=== PATIENT | female | born 1975 | race Hispanic/Latino ===

== ENCOUNTER 2017-07-03 14:31 | Emergency (ER) | payer SELFPAY ==
--- NOTE | 2017-07-03 16:08 | RAD REPORT ---
EXAM DESCRIPTION: RAD - Foot Right 3 View - 07/03/2017 3:33 pm CLINICAL HISTORY: History of clubfoot, persistent right foot pain COMPARISON: None. FINDINGS: No fracture, dislocation or periosteal reaction. No measurable degenerative changes at the MTP or IP joints. Small plantar spur is present. There are prominent calcifications of the Achilles tendon. Degenerative changes are present at the calcaneus cuboid joint and the talonavicular joint. P atient has a relatively low profile or flatten the dome of the talus. These are all probably chronic sequela of the clubfoot deformity. No destructive bone process. No air or foreign body in the soft tissues. IMPRESSION: Degenerative changes in the midfoot with changes of the talar dome all likely sequela of the clubfoot deformity stated in patient history. No acute or destructive bone process. Small plantar spur.
--- NOTE | 2017-07-03 16:10 | EDPHYS ---
Physician Documentation [facility] Name: Isabelle Ansari Age: 41 yrs Sex: Female : 1975 Arrival Date: 07/03/2017 Time: 14:34 Bed 19 Private MD: ED Physician Dave An HPI: 07/03 15:42 This 41 yrs old Female presents to ER via Wheelchair with complaints of Foot kb Pain. 15:42 The patient presents with an injury, pain, that is acute, swelling, tenderness. The kb complaints affect the right foot. Context: The problem was sustained at home, resulted from a mis-step by the patient, the patient can fully bear weight, the patient is able to ambulate. Onset: The symptoms/episode began/occurred this morning. Modifying factors: The symptoms are alleviated by nothing, the symptoms are aggravated by weight bearing. Associated signs and symptoms: Pertinent positives: swelling, Pertinent negatives: calf tenderness, fever, nausea, numbness, rash, tingling, vomiting, warmth, weakness. Severity of symptoms: At their worst the symptoms were moderate, in the emergency department the symptoms are unchanged. The patient has not experienced similar symptoms in the past. The patient has not recently seen a physician. 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 - Social history:: Smoking status: Patient/guardian denies using tobacco. ROS: 15:42 Constitutional: Negative for fever, chills, and weight loss, Cardiovascular: Negative kb for chest pain, palpitations, and edema, Respiratory: Negative for shortness of breath, cough, wheezing, and pleuritic chest pain, Abdomen/GI: Negative for abdominal pain, nausea, vomiting, diarrhea, and constipation, Skin: Negative for injury, rash, and discoloration, Neuro: Negative for headache, weakness, numbness, tingling, and seizure. 15:42 MS/extremity: Positive for injury or acute deformity, pain, swelling, tenderness, of the dorsum of right foot. Exam: 15:42 Constitutional: This is a well developed, well nourished patient who is awake, alert, kb and in no acute distress. Head/Face: Normocephalic, atraumatic. Chest/axilla: Normal chest wall appearance and motion. Nontender with no deformity. No lesions are appreciated. Cardiovascular: Regular rate and rhythm with a normal S1 and S2. No gallops, murmurs, or rubs. Normal PMI, no JVD. No pulse deficits. Respiratory: Lungs have equal breath sounds bilaterally, clear to auscultation and percussion. No rales, rhonchi or wheezes noted. No increased work of breathing, no retractions or nasal flaring. Abdomen/GI: Soft, non-tender, with normal bowel sounds. No distension or tympany. No guarding or rebound. No evidence of tenderness throughout. Skin: Warm, dry with normal turgor. Normal color with no rashes, no lesions, and no evidence of cellulitis. Neuro: Awake and alert, GCS 15, oriented to person, place, time, and situation. Cranial nerves II-XII grossly intact. Motor strength 5/5 in all extremities. Sensory grossly intact. Cerebellar exam normal. Normal gait. 15:42 Musculoskeletal/extremity: Extremities: grossly normal except: noted in the dorsum of right foot: pain, swelling, tenderness, ROM: intact in all extremities, Circulation is intact in all extremities. Sensation intact. Weight bearing: able to fully bear weight. Vital Signs: 14:49 BP 152 / 70; Pulse 113; Resp 17; Temp 98.2; Pulse Ox 100% on R/A; Weight 72.57 kg; aj Height 5 ft. 0 in. (152.40 cm); Pain 7/10; 15:50 BP 148 / 76; Pulse 87; Resp 16; Pulse Ox 99% on R/A; Pain 5/10; em 14:49 Body Mass Index 31.25 (72.57 kg, 152.40 cm) aj MDM: 15:26 Patient medically screened. kb 15:42 Data reviewed: vital signs, nurses notes. Data interpreted: Pulse oximetry: on room air kb is 100 %. Interpretation: normal. 16:09 Counseling: I had a detailed discussion with the patient and/or guardian regarding: the kb historical points, exam findings, and any diagnostic results supporting the discharge/admit diagnosis, radiology results, the need for outpatient follow up, a family practitioner, to return to the emergency department if symptoms worsen or persist or if there are any questions or concerns that arise at home. 07/03 14:50 Order name: Foot Right 3 View XRAY; Complete Time: 16:09 aj 07/03 16:09 Order name: Christ Wrap; Complete Time: 16:35 kb Administered Medications: No medications were administered Disposition: 07/03/17 16:09 Discharged to Home. Impression: Sprain of foot. - Condition is Stable. - Discharge Instructions: Foot Sprain. - Medication Reconciliation Form, Thank You Letter, Antibiotic Education, Prescription Opioid Use, Work release form form. - Follow up: Emergency Department; When: As needed; Reason: Worsening of condition. Follow up: Private Physician; When: 2 - 3 days; Reason: Recheck today's complaints, Continuance of care, Re-evaluation by your physician. Addendum: 07/05/2017 06:21 Co-signature as Attending Physician, Dave An MD. g s Signatures: Dispatcher [employer] Megan La, SOFTWARE DEVELOPMENT PROJECT MANAGER-C SOFTWARE DEVELOPMENT PROJECT MANAGER-Michelle Verde, RN RN Gerson Gusman, SOUVENIR AND NOVELTY MAKER SOUVENIR AND NOVELTY MAKER Dave Ulrich MD MD
--- NOTE | 2017-07-03 16:10 | ER ---
Nurse's Notes [facility] Name: Isabelle Ansari Age: 41 yrs Sex: Female : 1975 Arrival Date: 07/03/2017 Time: 14:34 Bed 19 Private MD: Diagnosis: Sprain of foot Presentation: 07/03 14:47 Presenting complaint: Patient states: Reports pain to right foot that started this AM aj after falling. Pain is worse with weight baring. Transition of care: patient was not received from another setting of care. Onset of symptoms was July 03, 2017. Note Patient drove herself to ER. Care prior to arrival: None. 14:47 Method Of Arrival: Wheelchair aj 14:47 Acuity: KIKI 4 aj Triage Assessment: 14:49 General: Appears in no apparent distress. comfortable, Behavior is calm, cooperative, aj appropriate for age. Pain: Complains of pain in arch of right foot and dorsum of right foot Pain at worst was 8 out of 10 on a pain scale. Neuro: Level of Consciousness is awake, alert, obeys commands, Oriented to person, place, time, situation. Respiratory: Airway is patent Respiratory effort is even, unlabored, Respiratory pattern is regular, symmetrical. Derm: Skin is intact, is healthy with good turgor, Skin is pink, warm \T\ dry. normal. 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 - Social history:: Smoking status: Patient/guardian denies using tobacco. Screenin:45 Abuse screen: Denies threats or abuse. Nutritional screening: No deficits noted. em Tuberculosis screening: No symptoms or risk factors identified. Fall Risk None identified. Assessment: 15:45 General: Appears in no apparent distress. uncomfortable, Behavior is calm, cooperative. em Pain: Complains of pain in right foot. Neuro: Level of Consciousness is awake, alert, obeys commands, Oriented to person, place, time, situation. Cardiovascular: Capillary refill < 3 seconds Patient's skin is warm and dry. Respiratory: Airway is patent Respiratory effort is even, unlabored. GI: Abdomen is round. : No signs and/or symptoms were reported regarding the genitourinary system. EENT: No signs and/or symptoms were reported regarding the EENT system. Derm: Skin is intact, Skin is pink, warm \T\ dry. Musculoskeletal: Swelling present in right foot. 15:45 Injury Description: trip injury, has limited ROM in right foot, 2-4 digits. em 16:00 General: The previous assessment is accurate, call light remains within reach. . ss 16:20 Reassessment: Patient appears in no apparent distress at this time. Patient and/or em family updated on plan of care and expected duration. Pain level reassessed. Patient is alert, oriented x 3, equal unlabored respirations, skin warm/dry/pink. Vital Signs: 14:49 BP 152 / 70; Pulse 113; Resp 17; Temp 98.2; Pulse Ox 100% on R/A; Weight 72.57 kg; aj Height 5 ft. 0 in. (152.40 cm); Pain 7/10; 15:50 BP 148 / 76; Pulse 87; Resp 16; Pulse Ox 99% on R/A; Pain 5/10; em 14:49 Body Mass Index 31.25 (72.57 kg, 152.40 cm) aj ED Course: 14:34 Patient arrived in ED. as 14:48 Triage completed. aj 14:49 Arm band placed on left wrist. Patient placed in waiting room, Patient notified of wait aj time. 15:26 [facility] Hopper [facility]C [facility] kb 15:26 Dave An MD is Attending Physician. kb 15:30 Gerson Oleary LVN is Primary Nurse. em 15:32 X-ray completed. Patient tolerated procedure well. Patient taken to [facility], via mh1 wheelchair. 15:33 Foot Right 3 View XRAY In Process Unspecified. EDMS 15:45 Patient has correct armband on for positive identification. Bed in low position. Side em rails up X2. Ice pack to injury. 15:45 No provider procedures requiring assistance completed. Patient did not have IV access em during this emergency room visit. 16:24 Christ wrap to right foot. em Administered Medications: No medications were administered Outcome: 16:09 Discharge ordered by . kb 16:36 Discharged to home via wheelchair. em 16:36 Condition: good 16:36 Discharge instructions given to patient, Instructed on discharge instructions, follow up and referral plans. Demonstrated understanding of instructions, follow-up care. 16:37 Patient left the ED. em Signatures: Dispatcher [employer] Megan La, FRANCISCO-C DIRECT MARKETING ANALYST-Michelle Verde, RN RN Mikayla Kay [facility] Gerson Oleary, KITCHEN WORKER KITCHEN WORKER Luisa Finn Shelby, RN RN ss
== END 2017-07-03 16:37 | disposition home or self-care (01) ==
LOC: ER 14:31
DX: S93.601A Unspecified sprain of right foot, initial encounter (principal); X58.XXXA Exposure to other specified factors, initial encounter; Y93.9 Activity, unspecified; Y92.009 Unspecified place in unspecified non-institutional (private) residence as the place of occurrence of the external cause
CPT/HCPCS: 99283

== ENCOUNTER 2018-11-17 14:26 | Emergency (ER) | payer SELFPAY ==
--- OUTSIDE RECORDS SUMMARY | 2018-11-17 14:29 | XMS REPORT ---
:1975 [facility] [address] [place] [id number] Care Team Providers Name Role Phone Unavailable Unavailable Unavailable Problems This patient has no known problems. Allergies, Adverse Reactions, Alerts This patient has no known allergies or adverse reactions. Medications This patient has no known medications.
[2018-11-17] MEDS ORDERED: TETANUS & DIPHTHERIA TOX,ADULT 0.5 ML VIAL ONE (15:09)
[2018-11-17] MEDS ORDERED: CEPHALEXIN 250 MG CAP ONE (15:09)
--- NOTE | 2018-11-17 15:13 | ER ---
Nurse's Notes [facility] Name: Isabelle Ansari Age: 43 yrs Sex: Female : 1975 Arrival Date: 11/17/2018 Time: 14:28 Bed 12 Private MD: Diagnosis: Laceration without foreign body of right hand Presentation: 11/17 14:30 Presenting complaint: Patient states: I cut my right hand on sheet metal and I am la1 diabetic so I dont want it to get infected. Transition of care: patient was not received from another setting of care. Complicating Factors: There are no complicating factors for this patient. Onset of symptoms was November 17, 2018. Risk Assessment: Do you want to hurt yourself or someone else? Patient reports no desire to harm self or others. Initial Sepsis Screen: Does the patient meet any 2 criteria? No. Patient's initial sepsis screen is negative. Does the patient have a suspected source of infection? No. Patient's initial sepsis screen is negative. Care prior to arrival: None. 14:30 Method Of Arrival: Ambulatory la1 14:30 Acuity: KIKI 4 la1 Historical: - Allergies: 14:32 No Known Allergies; la1 - PMHx: 14:32 Diabetes - NIDDM; la1 - Immunization history:: Adult Immunizations up to date. - Social history:: Smoking status: Patient uses tobacco products, smokes one-half pack cigarettes per day. - Ebola Screening: : No symptoms or risks identified at this time. - Family history:: not pertinent. Screenin:34 Abuse screen: Denies threats or abuse. Nutritional screening: No deficits noted. la1 Tuberculosis screening: No symptoms or risk factors identified. Fall Risk None identified. Assessment: 14:33 General: Appears in no apparent distress. Behavior is calm, cooperative. Pain: la1 Complains of pain in right hand. Neuro: Level of Consciousness is awake, alert, obeys commands, Oriented to person, place, time, situation. Cardiovascular: Capillary refill < 3 seconds Patient's skin is warm and dry. Respiratory: Airway is patent Respiratory effort is even, unlabored, Respiratory pattern is regular, symmetrical. GI: No signs and/or symptoms were reported involving the gastrointestinal system. : No signs and/or symptoms were reported regarding the genitourinary system. Musculoskeletal: Circulation, motion, and sensation intact. Capillary refill < 3 seconds, is brisk, in bilateral fingers. Injury Description: Laceration sustained to medial aspect of right hand is clean. 15:17 Reassessment: wound cleaned with Hibiclens and water. Vital Signs: 14:32 BP 150 / 84; Pulse 84; Resp 16; Temp 97.5; Pulse Ox 98% on R/A; Weight 68.04 kg; la1 ED Course: 14:28 Patient arrived in ED. as 14:32 Triage completed. la1 14:32 Arm band placed on left wrist. la1 14:33 Lito Hassan, RN is Primary Nurse. la1 14:35 Seven Andrews MD is Attending Physician. [facility] 14:35 Patient has correct armband on for positive identification. la1 15:41 No provider procedures requiring assistance completed. Patient did not have IV access la1 during this emergency room visit. Administered Medications: 15:16 Drug: Tetanus-Diphtheria Toxoid Adult 0.5 ml {Roping Machine Tender: Vaprema. Exp: la1 07/16/2020. Lot #: [id number]. } Route: IM; Site: right deltoid; 15:40 Follow up: Response: No adverse reaction la1 15:16 Drug: KeFLEX 500 mg Route: PO; la1 15:40 Follow up: Response: No adverse reaction la1 15:16 Drug: Neosporin Ointment 1 application Route: Topical; Site: affected area; la1 Outcome: 15:11 Discharge ordered by . [facility] 15:41 Discharged to home ambulatory. la1 15:41 Condition: stable 15:41 Discharge instructions given to patient, Instructed on discharge instructions, follow up and referral plans. medication usage, Demonstrated understanding of instructions, follow-up care, medications, Prescriptions given X 2. 15:41 Patient left the ED. la1 Signatures: Seven Andrews MD MD cha Martinez, Amelia as Smirch, Shelby, RN RN Lito Hassan RN RN la1
--- NOTE | 2018-11-17 15:14 | EDPHYS ---
Physician Documentation [facility] Name: Isabelle Ansari Age: 43 yrs Sex: Female : 1975 Arrival Date: 11/17/2018 Time: 14:28 Bed 12 Private MD: ROSE Physician Seven Andrews HPI: 11/17 15:07 This 43 yrs old Female presents to ER via Ambulatory with complaints of miroslava Laceration To Hand. 15:07 The patient has a laceration related to: falling occurred at home. The laceration(s) miroslava is(are) located on the right hand. Onset: The symptoms/episode began/occurred this morning. Associated signs and symptoms: The patient has no apparent associated signs or symptoms. The patient has not experienced similar symptoms in the past. Historical: - Allergies: 14:32 No Known Allergies; la1 - PMHx: 14:32 Diabetes - NIDDM; la1 - Immunization history:: Adult Immunizations up to date. - Social history:: Smoking status: Patient uses tobacco products, smokes one-half pack cigarettes per day. - Ebola Screening: : No symptoms or risks identified at this time. - Family history:: not pertinent. ROS: 15:07 Constitutional: Negative for fever, chills, and weight loss, Eyes: Negative for injury, miroslava pain, redness, and discharge, ENT: Negative for injury, pain, and discharge, Neck: Negative for injury, pain, and swelling, Cardiovascular: Negative for chest pain, palpitations, and edema, Respiratory: Negative for shortness of breath, cough, wheezing, and pleuritic chest pain, Abdomen/GI: Negative for abdominal pain, nausea, vomiting, diarrhea, and constipation, Back: Negative for injury and pain, : Negative for injury, bleeding, discharge, and swelling, Skin: Negative for injury, rash, and discoloration, Neuro: Negative for headache, weakness, numbness, tingling, and seizure, Psych: Negative for depression, anxiety, suicide ideation, homicidal ideation, and hallucinations, Allergy/Immunology: Negative for hives, rash, and allergies, Endocrine: Negative for neck swelling, polydipsia, polyuria, polyphagia, and marked weight changes, Hematologic/Lymphatic: Negative for swollen nodes, abnormal bleeding, and unusual bruising. 15:07 MS/extremity: Positive for laceration, tenderness, of the outer aspect of right palm. Exam: 15:07 Constitutional: This is a well developed, well nourished patient who is awake, alert, miroslava and in no acute distress. Head/Face: Normocephalic, atraumatic. Eyes: Pupils equal round and reactive to light, extra-ocular motions intact. Lids and lashes normal. Conjunctiva and sclera are non-icteric and not injected. Cornea within normal limits. Periorbital areas with no swelling, redness, or edema. ENT: Nares patent. No nasal discharge, no septal abnormalities noted. Tympanic membranes are normal and external auditory canals are clear. Oropharynx with no redness, swelling, or masses, exudates, or evidence of obstruction, uvula midline. Mucous membranes moist. Neck: Trachea midline, no thyromegaly or masses palpated, and no cervical lymphadenopathy. Supple, full range of motion without nuchal rigidity, or vertebral point tenderness. No Meningismus. Chest/axilla: Normal chest wall appearance and motion. Nontender with no deformity. No lesions are appreciated. Cardiovascular: Regular rate and rhythm with a normal S1 and S2. No gallops, murmurs, or rubs. Normal PMI, no JVD. No pulse deficits. Respiratory: Lungs have equal breath sounds bilaterally, clear to auscultation and percussion. No rales, rhonchi or wheezes noted. No increased work of breathing, no retractions or nasal flaring. Abdomen/GI: Soft, non-tender, with normal bowel sounds. No distension or tympany. No guarding or rebound. No evidence of tenderness throughout. Back: No spinal tenderness. No costovertebral tenderness. Full range of motion. MS/ Extremity: Pulses equal, no cyanosis. Neurovascular intact. Full, normal range of motion. Neuro: Awake and alert, GCS 15, oriented to person, place, time, and situation. Cranial nerves II-XII grossly intact. Motor strength 5/5 in all extremities. Sensory grossly intact. Cerebellar exam normal. Normal gait. Psych: Awake, alert, with orientation to person, place and time. Behavior, mood, and affect are within normal limits. 15:07 Skin: injury, laceration(s), the wound is approximately 1 cm(s), with a depth of .25 cm(s), of the right hand. Vital Signs: 14:32 BP 150 / 84; Pulse 84; Resp 16; Temp 97.5; Pulse Ox 98% on R/A; Weight 68.04 kg; la1 MDM: 14:35 Patient medically screened. [facility] 15:10 Data reviewed: vital signs, nurses notes. [facility] 11/17 15:07 Order name: Wound dressing; Complete Time: 15:08 [facility] Administered Medications: 15:16 Drug: Tetanus-Diphtheria Toxoid Adult 0.5 ml {Regional Safety Manager: [place]. Exp: la1 07/16/2020. Lot #: [id number]. } Route: IM; Site: right deltoid; 15:40 Follow up: Response: No adverse reaction la1 15:16 Drug: KeFLEX 500 mg Route: PO; la1 15:40 Follow up: Response: No adverse reaction [facility] 15:16 Drug: Neosporin Ointment 1 application Route: Topical; Site: affected area; la1 Disposition: 11/17/18 15:11 Discharged to Home. Impression: Laceration without foreign body of right hand. - Condition is Stable. - Discharge Instructions: Laceration Care, Adult, Laceration Care, Adult, [id number]. - Prescriptions for Keflex 500 mg Oral Capsule - take 1 capsule by ORAL route every 6 hours for 7 days; 28 capsule. Tylenol- Codeine #3 300-30 mg Oral Tablet - take 2 tablets by ORAL route every 6 hours As needed; 20 tablet. - Work release form, Medication Reconciliation Form, Thank You Letter, Antibiotic Education, Prescription Opioid Use form. - Problem is new. - Symptoms have improved. Signatures: Seven Andrews MD MD cha Attema, Lee RN RN la1 Corrections: (The following items were deleted from the chart) 15:41 15:11 11/17/2018 15:11 Discharged to Home. Impression: Laceration without foreign body la1 of right hand. Condition is Stable. Forms are Medication Reconciliation Form, Thank You Letter, Antibiotic Education, Prescription Opioid Use. Problem is new. Symptoms have improved. [facility]
== END 2018-11-17 15:41 | disposition home or self-care (01) ==
LOC: ER 14:26
DX: S61.411A Laceration without foreign body of right hand, initial encounter (principal); W19.XXXA Unspecified fall, initial encounter; Y92.009 Unspecified place in unspecified non-institutional (private) residence as the place of occurrence of the external cause; E11.9 Type 2 diabetes mellitus without complications; F17.210 Nicotine dependence, cigarettes, uncomplicated; Z23 Encounter for immunization
CPT/HCPCS: 90471; 90714; 99283

== ENCOUNTER 2019-06-03 08:51 | Emergency (ER) | payer SELFPAY ==
--- OUTSIDE RECORDS SUMMARY | 2019-06-03 08:53 | XMS REPORT ---
:1975 [facility] Address [address] [place] [id number] Care Team Providers Name Role Phone Unavailable Unavailable Unavailable Problems This patient has no known problems. Allergies, Adverse Reactions, Alerts This patient has no known allergies or adverse reactions. Medications This patient has no known medications.
--- OUTSIDE RECORDS SUMMARY | 2019-06-03 08:54 | XMS REPORT | Summary of Care ---
:1975 Author Organization [facility] - [facility] Address [address] [place] [id number] Care Team Providers Name Role Phone Pcp, Patient Does Not Have A Primary Care Provider Reason for Visit Reason Comments Congestion Cough Auth/Cert Status Reason Specialty Diagnoses / Referred By Referred To Procedures Contact Contact [facility] [address] [place] [address] [place] [address] Encounter Details Date Type Department Care Team Description 05/30/2019 - Emergency ADC-Emergency Jose Castanon MD [address] [facility] [id number] [place] [address] Sore throat (Primary Dx); 05/31/2019 Department Daniel Husain APN [address] [place] [address] [place] [address] Allergic rhinitis, unspecified seasonality, unspecified trigger; [address] [place] [address] Viral syndrome [place], [place] [id number] Allergies No Known Allergiesdocumented as of this encounter (statuses as of 05/31/2019) Medications Medication Sig Dispensed Refills Start Date End Date Status nicotine (NICODERM) Apply 1 Patch to 30 Patch 0 03/21/2011 Active 14 mg/24 hr patch area(s) every 24 (twenty-four) hours. metFORMIN Take 1 Tab by mouth 2 60 Tab 3 03/30/2011 Active (GLUCOPHAGE) 1,000 (two) times daily mg tablet with meals. NIFEdipine CC Take 1 Tab by mouth 30 Tab 2 03/30/2011 Active (ADALAT CC) 30 mg daily. SR tablet vitamin Take 1 Tab by mouth 100 Tab 3 03/30/2011 Active w/FA ( RX daily. OR GENERIC EQUIVALENT) tablet docusate calcium Take 1 Cap by mouth 60 Cap 1 03/30/2011 Active (SURFAK) 240 mg once daily as needed capsule for Constipation. ferrous sulfate 325 Take 1 Tab by mouth 2 60 Tab 2 03/30/2011 Active mg (65 mg iron) (two) times daily. tablet hydrocodone-acetami Take 1-2 Tabs by 30 Tab 0 03/30/2011 Active nophen (NORCO 5) mouth every 6 (six) 5-325 mg tablet hours as needed for Pain. Not to be administered at the same time as [place] 10 if ordered. For patients < 12 years recommend do not exceed 5 doses or 2.6 gm in 24 hours totals for all acetaminophen containing products. For adults with normal hepatic function recommend do not exceed 4 grams in 24 hours for all acetaminophen containing products. ibuprofen (MOTRIN) Take 1 Tab by mouth 60 Tab 1 03/30/2011 Active 600 mg tablet every 6 (six) hours as needed for Pain. guaiFENesin 100 Take 5 mL by mouth 1 Bottle 0 03/30/2011 Active mg/5 mL solution every 4 (four) hours. hydrocodone-acetami Take 1-2 Tabs by 30 Tab 0 04/09/2011 Active nophen (NORCO 5) mouth every 6 (six) 5-325 mg tablet hours as needed for Pain. Not to be administered at the same time as [place] 10 if ordered. For patients < 12 years recommend do not exceed 5 doses or 2.6 gm in 24 hours totals for all acetaminophen containing products. For adults with normal hepatic function recommend do not exceed 4 grams in 24 hours for all acetaminophen containing products. ibuprofen (MOTRIN) Take 1 Tab by mouth 60 Tab 1 04/09/2011 Active 600 mg tablet every 6 (six) hours as needed for Pain. ibuprofen 800 mg Take 1 tablet by 21 tablet 0 07/09/2017 Active tablet mouth every 8 (eight) hours as needed (PAIN). traMADol 50 mg Take 1 tablet by 30 tablet 0 03/22/2019 Active tabletIndications: mouth every 6 (six) Dental caries hours as needed for Pain (scale 4-6). ibuprofen 800 mg Take 1 tablet by 30 tablet 0 03/22/2019 Active tabletIndications: mouth every 8 (eight) Dental caries hours. fluticasone Use 1 [place] in each 16 g 0 05/30/2019 Active propionate (FLONASE nostril 2 (two) times ALLERGY RELIEF) 50 daily. mcg/actuation nasal sprayIndications: Allergic rhinitis, unspecified seasonality, unspecified trigger documented as of this encounter (statuses as of 05/31/2019) Active Problems Problem Noted Date delivery delivered 07/22/2009 Overview: ICD10 Diagnosis Term Spinning Doffer Utility documented as of this encounter (statuses as of 05/31/2019) Immunizations Name Administration Dates Next Due Influenza Virus Vaccine 03/21/2011 documented as of this encounter Social History Tobacco Use Types Packs/Day Years Used Date Current Some Day Smoker Smokeless Tobacco: Never Used Sex Assigned at Date Recorded Not on file Job Start Date Occupation Industry Not on file Not on file Not on file Travel History Travel Start Travel End No recent travel history available. documented as of this encounter Last Filed Vital Signs Vital Sign Reading Time Taken Comments Blood Pressure 148/68 05/30/2019 9:47 PM [employer] Pulse 105 05/30/2019 9:47 PM [employer] Temperature 37.4 C (99.4 F) 05/30/2019 9:47 PM [employer] Respiratory Rate 12 05/30/2019 9:46 PM [employer] Oxygen Saturation 100% 05/30/2019 9:47 PM [employer] Inhaled Oxygen Concentration - - Weight 63.5 kg (140 lb) 05/30/2019 9:46 PM [employer] Height 152.4 cm (5') 05/30/2019 9:46 PM [employer] Body Mass Index 27.34 05/30/2019 9:46 PM [employer] documented in this encounter Discharge Instructions Daniel Phelps APN - 05/30/2019DIAGNOSIS Allergic rhinitis Viral syndrome NO LIFE-THREATENING FINDINGS ON TODAY'S EXAM. PROCEDURES IN THE ER TODAY: Physical exam and laboratory studies MEDICATIONS ADMINISTERED IN THE ER TODAY: Tylenol YOUR PRESCRIPTIONS AND [id number] MEDICATION RECOMMENDATIONS: Flonase spray SPECIAL CARE INSTRUCTIONS: Return for any new, persistent or worsening symptoms, otherwise follow up with your primary care provider within three days. FOLLOW-UP RECOMMENDATIONS: RECOMMEND FOLLOW-UP WITH A PRIMARY CARE PROVIDER OR SPECIALIST IN 2-5 DAYS, ESPECIALLY IF NO IMPROVEMENT IN SYMPTOMS. TO FOLLOW-UP WITHIN THE [facility], TRY THESE OPTIONS (CLINIC APPOINTMENTS AVAILABLE ON [id number] BASIS): 1. SCHEDULE AN APPOINTMENT ONLINE AT WWW.[facility] 2. OR CALL THE [facility] AT OR 3. OR CALL YOUR [facility] PHYSICIAN'S OFFICE DIRECTLY IF YOU ARE ALREADY AN ESTABLISHED [facility] PATIENT. OR, YOU MAY FOLLOW-UP WITH A PROVIDER OF YOUR CHOICE, SUCH : 1. A PHYSICIAN OF YOUR CHOICE 2. [facility], . LOCATIONS IN [facility] 3. [facility], [address], [place]; [phone] RETURN TO ER FOR WORSENING OF SYMPTOMS. Care of condition, home medications, and to seek immediate attention for any worsening or new symptoms such as chest pain, shortness of breath, weakness on one side of the body, generalized weakness, fever, increase in pain, nausea, vomiting, unusual bleeding, confusion, decreased level of consciousness or for any symptoms that you find concerning or worrisome. AttachmentsThe following attachments cannot be sent through Care Everywhere.Viral Syndrome (Adult) (Chinese)Allergies (Nasal), Understanding ( Chinese)documented in this encounter Plan of Treatment Name Type Priority Associated Diagnoses Date/Time THROAT CULTURE LAB STAT Sore throat 05/30/2019 11:09 PM [employer]YE [employer]HER HELPER Name Type Priority Associated Diagnoses Order Schedule THROAT CULTURE LAB Routine Sore throat ONCE for 1 Occurrences starting 05/30/2019 until 05/30/2019 Health Maintenance Due Date Last Done Comments DTaP,Tdap,and Td Vaccines 1988 (1 - Tdap) PAP SMEAR 08/23/2013 08/23/2010, 03/17/2009, 04/25/2005, Additional history exists Breast Cancer Screening 2017 (MAMMOGRAM) INFLUENZA VACCINE (#1) 2018 03/21/2011 PNEUMOCOCCAL 0-64 YEARS Aged Out No longer eligible COMBINED SERIES based on patient's age to complete this topic documented as of this encounter Procedures Procedure Name Priority Date/Time Associated Diagnosis Comments ADC,CLC OR LCC ONLY STAT 05/30/2019 11:09 PM Sore throat Results for this - INFLUENZA A & B [employer] procedure are in DIRECT ANTIGEN the results section. RAPID STREP SCREEN STAT 05/30/2019 11:09 PM Sore throat Results for this FOR GROUP A [employer]PER procedure are in the results section. NOTICE OF PRIVACY Routine 05/30/2019 9:28 PM PRACTICES DYE WEIGHER HELPER CONSENT/REFUSAL FOR Routine 05/30/2019 9:27 PM DIAGNOSIS AND [employer]HER HELPER TREATMENT documented in this encounter Results RAPID STREP SCREEN FOR GROUP A (05/30/2019 11:09 PM DYE WEIGHER HELPER) Streptococcus pyogenes Negative Negative [facility] (group A) antigen [facility] Specimen Swab - THROAT Performing Organization Address City/[facility] CLIA: [id number], [address] [place] [id number] ADC,CLC OR LCC ONLY - INFLUENZA A & B DIRECT ANTIGEN (05/30/2019 11:09 PM DYE WEIGHER HELPER) Influenza A Negative Negative [facility] Influenza B Negative Negative [facility] Specimen Swab - NARE, LEFT SIDE Performing Organization Address City/[facility] Phone Number [facility] CLIA: [id number], [address] [place] [address] documented in this encounter Visit Diagnoses Diagnosis Sore throat - Primary Acute pharyngitis Allergic rhinitis, unspecified seasonality, unspecified trigger Viral syndrome Unspecified viral infection, in conditions classified elsewhere and of unspecified site documented in this encounter Administered Medications Medication Order MAR Action Action Date Dose Rate Site acetaminophen (TYLENOL) tablet Given 05/30/2019 11:13 PM DYE WEIGHER HELPER 650 mg 650 mg 650 mg, Oral, ONCE, 1 dose, 05/31/19 at 0000, KARINA documented in this encounter Advance Directives Name Relationship Healthcare Agent Relationship Communication Schuyler Ansari Sibling Primary healthcare agent
[2019-06-03] MEDS ORDERED: NA CHLORIDE 0.9% 1,000 ML ONE ×2 (09:20→10:54)
[2019-06-03] MEDS ORDERED: LEVALBUTEROL 1.25 MG/3 ML NEB ONE (09:20)
[2019-06-03] MEDS ORDERED: IPRATROPIUM BROM 0.5MG/2.5ML ONE (09:20)
--- NOTE | 2019-06-03 10:03 | RAD REPORT ---
EXAM DESCRIPTION: Alyssa Single View06/03/2019 9:34 am CLINICAL HISTORY: Cough COMPARISON: none FINDINGS: The lungs appear clear of acute infiltrate. The heart is normal size IMPRESSION: No acute abnormalities displayed
--- NOTE | 2019-06-03 10:23 | RAD REPORT ---
EXAM DESCRIPTION: US - Abdomen Exam Limited - 06/03/2019 10:06 am CLINICAL HISTORY: EPIGASTRIC PAIN COMPARISON: No comparisons FINDINGS: The gallbladder demonstrates large shadowing gallstones. No pericholecystic fluid or gallb ladder wall thickening. The common bile duct is normal measuring 5 mm. The liver demonstrates no findings of intrahepatic biliary dilatation. IMPRESSION: Cholelithiasis.
[2019-06-03 10:25] LABS: ALT/SGPT 34 U/L (12-78); AST/SGOT 36 U/L (15-37); Albumin 3.2 g/dL (3.4-5.0); Alkaline Phosphatase 114 U/L (45-117); BUN Blood Urea Nitrogen 7 mg/dL (7-18); Bicarbonate 25 mmol/L (21-32); Bilirubin Direct 0.2 mg/dL (0-0.2); Bilirubin Total 0.5 mg/dL (0.2-1.0); Glucose Level 407 mg/dL (74-106); Lipase 269 U/L (73-393); Protein, Total 7.6 g/dL (6.4-8.2); Sodium Level 134 mmol/L (136-145)
[2019-06-03 10:31] LABS: Potassium 2.9 mmol/L (3.5-5.1)
[2019-06-03 10:39] LABS: Absolute Lymphocytes (CBC) 1.1 K/uL (0.7-4.9); Basophils % 0.6 % (0-1.3); Hematocrit 33.2 % (36.0-45.0); Lymphocytes % 41.5 % (15.3-44.8); MPV 11.2 fL (7.6-11.3); RBC Red Blood Cell Count 5.16 M/uL (3.86-4.86)
[2019-06-03] MEDS ORDERED: POTASSIUM 25 MEQ EFFERV TAB ONE (10:53)
[2019-06-03 11:03] LABS: Anisocytosis 1+; Blood Morphology Comment NOTED (NOT SEEN); Hypochromasia 1+; Platelet Estimate DECR; Platelets, Giant FEW
[2019-06-03 12:54] LABS: Urine Blood TRACE (NEG); Urine Glucose 2+ (NEG); Urine Protein NEGATIVE (NEG); Urine Specific Gravity 1.005 (1.005-1.030)
--- NOTE | 2019-06-03 12:56 | EDPHYS ---
Physician Documentation [facility] Name: Isabelle Ansari Age: 43 yrs Sex: Female : 1975 Arrival Date: 06/03/2019 Time: 08:59 Bed 8 Private MD: ED Physician Sven Gage HPI: 06/03 09:20 This 43 yrs old Female presents to ER via Ambulatory with complaints of Cough, jmm Abdominal Pain. 09:20 The patient or guardian reports cough. Onset: The symptoms/episode began/occurred jmm gradually, 3 day(s) ago. Modifying factors: The symptoms are alleviated by nothing, the symptoms are aggravated by nothing. Associated signs and symptoms: Pertinent negatives: fever, vomiting. This is a 43 year old female with a history of dm, that presents to the ED with complaints of cough with epigastric pain beginning approx 3 days ago. Seen by pcp and diagnosed with allergies. Patient complains of epigastric pain exacerbated by cough. . Historical: - Allergies: 09:11 No Known Allergies; ss - Home Meds: 09:11 metformin Oral [Active]; ss - PMHx: 09:11 Diabetes - NIDDM; ss - PSHx: 09:11 ; ss - Immunization history:: Adult Immunizations up to date. - Social history:: Smoking status: Patient reports the use of cigarette tobacco products, smokes one pack cigarettes per day. ROS: 09:20 Constitutional: Negative for fever, chills, and weight loss, Cardiovascular: Negative jmm for chest pain, palpitations, and edema. 09:20 Respiratory: Positive for cough. 09:20 Abdomen/GI: Positive for abdominal pain. 09:20 All other systems are negative. Exam: 09:20 Constitutional: This is a well developed, well nourished patient who is awake, alert, jmm and in no acute distress. Head/Face: atraumatic. Eyes: EOMI, no conjunctival erythema appreciated ENT: Moist Mucus Membranes Neck: Trachea midline, Supple Chest/axilla: Normal chest wall appearance and motion. Cardiovascular: Regular rate and rhythm. No edema appreciated 09:20 Respiratory: the patient does not display signs of respiratory distress, Respirations: normal, Breath sounds: wheezing: that is mild, is scattered. 09:20 Abdomen/GI: Inspection: abdomen appears normal, Bowel sounds: normal, Palpation: soft, mild abdominal tenderness, in the epigastric area. 09:20 Back: pain, is absent. 09:20 Musculoskeletal/extremity: ROM: intact in all extremities. 09:20 Skin: Appearance: Color: normal in color. 09:20 Neuro: Orientation: is normal, Mentation: is normal, Memory: is normal. 09:20 Psych: Behavior/mood is pleasant, cooperative. Vital Signs: 09:09 BP 170 / 73; Pulse 112; Resp 17; Temp 97.9(TE); Pulse Ox 100% on R/A; Weight 63.5 kg; ss Height 5 ft. 0 in. (152.40 cm); Pain 0/10; 09:30 BP 149 / 69; Pulse 102; Resp 16; Pulse Ox 100% ; bp 10:33 BP 144 / 64; Pulse 99; Resp 16; Pulse Ox 100% ; bp 11:31 BP 126 / 61; Pulse 100; Resp 19; Pulse Ox 100% ; bp 12:29 BP 138 / 71; Pulse 100; Resp 16; Temp 98.5; Pulse Ox 100% ; bp 09:09 Body Mass Index 27.34 (63.50 kg, 152.40 cm) ss MDM: 09:12 Patient medically screened. [facility] 12:52 Data reviewed: vital signs, nurses notes. Counseling: I had a detailed discussion with bronson the patient and/or guardian regarding: the historical points, exam findings, and any diagnostic results supporting the discharge/admit diagnosis, lab results, radiology results, the need for outpatient follow up, to return to the emergency department if symptoms worsen or persist or if there are any questions or concerns that arise at home. ED course: Most likely viral illness. Patient advised to follow up with pcp for reevaluation. Patient states she has not been taking her medication. Patient advised to resume medication. Patient otherwise given strct return precautions. Patient understood and agrees with the plan of care. . 06/03 09:12 Order name: Basic Metabolic Panel; Complete Time: 10:44 bp 06/03 09:12 Order name: CBC with Diff; Complete Time: 11:05 bp 06/03 09:12 Order name: Creatinine for Radiology; Complete Time: 10:04 bp 06/03 09:12 Order name: Hepatic Function; Complete Time: 10:44 bp 06/03 09:12 Order name: Lipase; Complete Time: 10:44 06/03 09:12 Order name: Flu; Complete Time: 09:56 [facility] 06/03 09:12 Order name: CXR XRAY; Complete Time: 10:19 06/03 09:29 Order name: US Abdomen Limited; Complete Time: 10:30 [facility] 06/03 11:04 Order name: Manual Differential; Complete Time: 11:05 [facility] 06/03 12:26 Order name: Glucose, Ancillary Testing; Complete Time: 12:36 [facility] 06/03 12:52 Order name: Urine Dipstick--Ancillary (enter results); Complete Time: 13:01 06/03 09:12 Order name: IV Saline Lock; Complete Time: 09:27 06/03 09:12 Order name: Labs collected and sent; Complete Time: 09:27 06/03 09:27 Order name: Urine Dipstick-Ancillary (obtain specimen); Complete Time: 12:56 [facility] 06/03 09:48 Order name: Labs - recollect needed: cbc recollect; Complete Time: 10:33 06/03 11:56 Order name: Finger Stick; Complete Time: 12:14 jm Administered Medications: 09:20 Drug: Xopenex 1.25 mg Route: Inhalation; bp 09:20 Drug: AtroVENT Aerosol 0.5 mg Route: Inhalation; bp 09:20 Drug: NS 0.9% 1000 ml Route: IV; Rate: 1000 ml; Site: right forearm; bp 10:56 Follow up: IV Status: Completed infusion; IV Intake: 1000ml bp 10:45 Drug: K-Lyte Effervescent Tablet 50 mEq Route: PO; bp 11:58 Follow up: Response: No adverse reaction bp 10:45 Drug: NS 0.9% 1000 ml Route: IV; Rate: 1 bolus; Site: right forearm; bp 13:07 Follow up: IV Status: Completed infusion; IV Intake: 1000ml bp Disposition: 17:46 Co-signature as Attending Physician, Sven Gage MD Chart signed for administrative ps1 purposes. . Disposition: 06/03/19 12:55 Discharged to Home. Impression: Acute bronchitis, Hypokalemia, Hyperglycemia, unspecified, Cholelithiasis, Urinary tract infection, site not specified. - Condition is Stable. - Discharge Instructions: Acute Bronchitis, Adult, Potassium Content of Foods, Hyperglycemia, Hypokalemia. - Prescriptions for promethazine- DM - take 5 milliliter by ORAL route every 4-6 hours; 1 bottle. Cephalexin 500 mg Oral Capsule - take 1 capsule by ORAL route every 12 hours for 10 days; 20 capsule. - Medication Reconciliation Form, Thank You Letter, Antibiotic Education, Prescription Opioid Use, Work release form form. - Follow up: Private Physician; When: 2 - 3 days; Reason: Recheck today's complaints, Continuance of care, Re-evaluation by your physician. - Notes: Please follow up with your primary care provider. Your abdominal pain may be from either abdominal muscle pain or from gallstones. Please let your primary care provider know this for further evaluation. Please return to the emergency department if you develop -Increased pain -Shortness of breath -Fever -Vomiting -Weakness -Chest Pain -Any other concern Signatures: Dispatcher [employer] EDMS Phil Cortez PA PA jmm Smirch, Shelby, RN RN ss Peltier, Brian, RN RN bp Singer, Phillip, MD MD ps1 Botello, Elizabeth eb Corrections: (The following items were deleted from the chart) 13:02 12:55 06/03/2019 12:55 Discharged to Home. Impression: Acute bronchitis; Hypokalemia; bronson Hyperglycemia, unspecified; Cholelithiasis. Condition is Stable. Forms are Medication Reconciliation Form, Thank You Letter, Antibiotic Education, Prescription Opioid Use. Follow up: Private Physician; When: 2 - 3 days; Reason: Recheck today's complaints, Continuance of care, Re-evaluation by your physician. bronson 13:08 13:02 06/03/2019 12:55 Discharged to Home. Impression: Acute bronchitis; Hypokalemia; bp Hyperglycemia, unspecified; Cholelithiasis; Urinary tract infection, site not specified. Condition is Stable. Discharge Instructions: Acute Bronchitis, Adult, Potassium Content of Foods, Hyperglycemia, Hypokalemia. Prescriptions for promethazine-DM - take 5 milliliter by ORAL route every 4-6 hours; 1 bottle, Cephalexin 500 mg Oral Capsule - take 1 capsule by ORAL route every 12 hours for 10 days; 20 capsule. and Forms are Medication Reconciliation Form, Thank You Letter, Antibiotic Education, Prescription Opioid Use. Follow up: Private Physician; When: 2 - 3 days; Reason: Recheck today's complaints, Continuance of care, Re-evaluation by your physician. bronson
--- NOTE | 2019-06-03 12:56 | ER ---
Nurse's Notes [facility] Name: Isabelle Ansari Age: 43 yrs Sex: Female : 1975 Arrival Date: 06/03/2019 Time: 08:59 Bed 8 Private MD: Diagnosis: Acute bronchitis;Hypokalemia;Hyperglycemia, unspecified;Cholelithiasis;Urinary tract infection, site not specified Presentation: 06/03 09:09 Chief complaint: Patient states: dry, hacking cough x 3 days. Unknown fever. PT reports ss she was seen by her PCP who told her it is just allergies, but did not prescribe anything for cough. Pt states the cough is becoming worse, is now painful and over the counter cough suppressants are not helping. Coronavirus screen: The patient has NOT traveled to [place] in the past 14 days. Proceed with normal triage procedures. Ebola Screen: Patient denies exposure to infectious person. Patient denies travel to an Ebola-affected area in the 21 days before illness onset. Initial Sepsis Screen: Does the patient meet any 2 criteria? HR > 90 bpm. Does the patient have a suspected source of infection? No. Patient's initial sepsis screen is negative. Risk Assessment: Do you want to hurt yourself or someone else? Patient reports no desire to harm self or others. 09:09 Method Of Arrival: Ambulatory ss 09:09 Acuity: KIKI 3 ss Triage Assessment: 09:10 General: Appears in no apparent distress. comfortable, Behavior is cooperative, bp appropriate for age, anxious. Pain: Complains of pain in epigastric area. EENT: No deficits noted. Neuro: No deficits noted. Cardiovascular: No deficits noted. Respiratory: No deficits noted. GI: Reports nausea. : No signs and/or symptoms were reported regarding the genitourinary system. Derm: No deficits noted. Musculoskeletal: No deficits noted. Historical: - Allergies: 09:11 No Known Allergies; ss - Home Meds: 09:11 metformin Oral [Active]; ss - PMHx: 09:11 Diabetes - NIDDM; ss - PSHx: 09:11 ; ss - Immunization history:: Adult Immunizations up to date. - Social history:: Smoking status: Patient reports the use of cigarette tobacco products, smokes one pack cigarettes per day. Screenin:12 Abuse screen: Denies threats or abuse. Denies injuries from another. Nutritional ss screening: No deficits noted. Tuberculosis screening: Never had TB. 12:57 Fall Risk None identified. bp Assessment: 09:10 General: SEE TRIAGE NOTE. 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 bp 11:31 Reassessment: ALL CURRENT ORDERS COMPLETED, IVF INFUSING. bp 12:57 Reassessment: PT D/C HOME AMBULATORY, DX WITH ACUTE BRONCHITIS. bp Vital Signs: 09:09 BP 170 / 73; Pulse 112; Resp 17; Temp 97.9(TE); Pulse Ox 100% on R/A; Weight 63.5 kg; ss Height 5 ft. 0 in. (152.40 cm); Pain 0/10; 09:30 BP 149 / 69; Pulse 102; Resp 16; Pulse Ox 100% ; bp 10:33 BP 144 / 64; Pulse 99; Resp 16; Pulse Ox 100% ; bp 11:31 BP 126 / 61; Pulse 100; Resp 19; Pulse Ox 100% ; bp 12:29 BP 138 / 71; Pulse 100; Resp 16; Temp 98.5; Pulse Ox 100% ; bp 09:09 Body Mass Index 27.34 (63.50 kg, 152.40 cm) ED Course: 08:59 Patient arrived in ED. as 09:04 Phil Cortez PA is PHCP. [facility] 09:04 Sven Gage MD is Attending Physician. jmm 09:11 Triage completed. ss 09:11 Ulysses Higuera, RN is Primary Nurse. bp 09:11 Arm band placed on right wrist. ss 09:12 Patient has correct armband on for positive identification. Bed in low position. Call light in reach. 09:20 Flu and/or RSV swab sent to lab. Inserted saline lock: 22 gauge in right forearm, using bp aseptic technique. Blood collected. 09:33 CXR XRAY In Process Unspecified. EDMS 10:06 US Abdomen Limited In Process Unspecified. EDMS 12:57 No provider procedures requiring assistance completed. IV discontinued, intact, bp bleeding controlled, No redness/swelling at site. Pressure dressing applied. Administered Medications: 09:20 Drug: Xopenex 1.25 mg Route: Inhalation; bp 09:20 Drug: AtroVENT Aerosol 0.5 mg Route: Inhalation; bp 09:20 Drug: NS 0.9% 1000 ml Route: IV; Rate: 1000 ml; Site: right forearm; bp 10:56 Follow up: IV Status: Completed infusion; IV Intake: 1000ml bp 10:45 Drug: K-Lyte Effervescent Tablet 50 mEq Route: PO; bp 11:58 Follow up: Response: No adverse reaction bp 10:45 Drug: NS 0.9% 1000 ml Route: IV; Rate: 1 bolus; Site: right forearm; bp 13:07 Follow up: IV Status: Completed infusion; IV Intake: 1000ml bp Intake: 10:56 IV: 1000ml; Total: 1000ml. bp 13:07 IV: 1000ml; Total: 2000ml. bp Outcome: 12:55 Discharge ordered by . bronson 12:57 Discharged to home ambulatory. bp 12:57 Condition: stable 12:57 Discharge instructions given to patient, Instructed on discharge instructions, follow up and referral plans. medication usage, Demonstrated understanding of instructions, follow-up care, medications, Prescriptions given X 2. 13:08 Patient left the ED. bp Signatures: Dispatcher [employer] EDMS Phil Cortez PA PA jmm Martinez, Amelia as Smirch, Shelby, SILVA RN ss Ulysses Higuera RN RN bp
[2019-06-03 13:21] VITALS: O2SAT 100
[2019-06-03 13:26] VITALS: BP 138/71; TEMP 98.5
== END 2019-06-03 13:08 | disposition home or self-care (01) ==
LOC: ER 08:51
DX: J20.9 Acute bronchitis, unspecified (principal); E87.6 Hypokalemia; E11.65 Type 2 diabetes mellitus with hyperglycemia; K80.20 Calculus of gallbladder without cholecystitis without obstruction; N39.0 Urinary tract infection, site not specified
CPT/HCPCS: 36415; 71045; 76705; 80048; 80076; 81003; 82947; 83690; 85025; 87804; 96360; 96361; 99284; J7030